=== PATIENT | male | born 1940 | race Caucasian/White ===

== ENCOUNTER 2020-12-17 15:36 | Observation (INO) | payer MEDICARE, OTHER ==
--- NOTE | 2020-12-17 19:23 | EDM.PDOC ---
ED HPI GENERAL MEDICAL PROBLEM - General Chief Complaint: Lower Extremity Injury/Pain Stated Complaint: FALL Time Seen by Provider: 12/17/20 16:00 Source of Information: Reports: Patient, EMS Notes Reviewed, Family History Limitations: Reports: Other (pt with limited understanding of his medical hx, son gave some of his hx, not seen in ED here previoiusly) - History of Present Illness INITIAL COMMENTS - FREE TEXT/NARRATIVE: c/o L hip pain pt [place] his in the jail, feeling well, he turned and thinks his new tennis shoe stuck on the floor and did not pivot, he fell on his left side, unable to wt bear, minimal pain at rest, he indicates pain over his L greater trochanter 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 PMH: no prior records here in [place], limited hx available from pt, past hx includes current smoker, penile cancer PSH: includes b/l inguinal lymphadenectomy meds: from his phone he takes tamsulosin 0.4 mg qhs, Erleada 60 mg 4 tabs/d, Left Hip Pain Score (Numeric/FACES): 2 - Related Data Allergies Allergy/AdvReac Type Severity Reaction Status Date / Time No Known Allergies Allergy Verified 12/17/20 15:52 Home Meds: Home Meds Acetaminophen/Diphenhydramine [Tylenol Pm Ex-Strength Caplet] 2 tab PO BEDTIME 12/17/20 [History] Calcium Carbonate/Vitamin D3 [Calcium 600 mg-D3 20 Mcg Tab] 1 tab PO DAILY 12/17/20 [History] Erleada 240 mg PO DAILY 12/17/20 [History] Metoprolol Tartrate 12.5 mg PO BID 12/17/20 [History] Multivit-Min/FA/Lycopen/Lutein [Centrum Silver Tablet] 1 tab PO DAILY 12/17/20 [History] Simvastatin 20 mg PO BEDTIME 12/17/20 [History] Tamsulosin HCl 0.8 mg PO BEDTIME 12/17/20 [History] metFORMIN [Glucophage] 500 mg PO BID 12/17/20 [History] Review of Systems - Review of Systems Review Of Systems: See Below Constitutional: Reports: No Symptoms Eyes: Reports: No Symptoms Ears: Reports: No Symptoms Nose: Reports: No Symptoms Mouth/Throat: Reports: No Symptoms Respiratory: Reports: No Symptoms Cardiovascular: Reports: No Symptoms GI/Abdominal: Reports: No Symptoms Genitourinary: Reports: No Symptoms Musculoskeletal: Reports: Other (left hip pain) Skin: Reports: No Symptoms Neurological: Reports: No Symptoms Psychiatric: Reports: No Symptoms ED EXAM, GENERAL - Physical Exam Exam: See Below Exam Limited By: No Limitations General Appearance: Alert, WD/WN, No Apparent Distress, Other (pleasant, pivoted on his good RLE to transfer to and from bed and w/c without difficulty) Ears: Hearing Loss Nose: Normal Inspection Throat/Mouth: Normal Voice, No Airway Compromise Head: Atraumatic, Normocephalic Neck: Normal Inspection, Supple, Non-Tender, Full Range of Motion. No: Lymphadenopathy (R), Lymphadenopathy (L) Respiratory/Chest: No Respiratory Distress, Lungs Clear, Chest Non-Tender Cardiovascular: Regular Rate, Rhythm, No Edema, No Murmur, Other (2/6 EMBER at LSB) GI/Abdominal: Soft, Non-Tender, No Distention Back Exam: Normal Inspection, Full Range of Motion. No: CVA Tenderness (R), CVA Tenderness (L) Extremities: Normal Inspection, Normal Range of Motion, Non-Tender, Other (nontender in left inguinal area and over left greater trochanger, no swell, no shortening on arrival, however there was 4 cm of shortening later, 1+ left DPpulse) Neurological: Alert, Oriented, CN II-XII Intact, Normal Cognition, No Motor/Sensory Deficits Psychiatric: Normal Affect, Normal Mood Skin Exam: Warm, Dry, Intact, Normal Color, No Rash Lymphatic: No Adenopathy Course - Vital Signs Last Recorded V/S: Last Vital Signs Temp 37.2 C 12/17/20 15:36 Pulse 81 12/17/20 18:22 Resp 18 12/17/20 18:22 BP 145/85 H 12/17/20 18:22 Pulse Ox 98 12/17/20 18:22 - Orders/Labs/Meds Orders: Active Orders 24 hr Category Date Time Status Hip Min 2V or 3V w Pelvis Lt [CR] Stat Exams 12/17/20 16:25 Taken EKG 12 Lead [EK] Routine Ther 12/17/20 18:03 Ordered Medication Orders Metformin HCl (Metformin 500 Mg Tab) 500 mg PO BID JUSTUS Metoprolol Tartrate (Metoprolol Tartrate 25 Mg Tab) 12.5 mg PO BID JUSTUS Morphine Sulfate (Morphine 2 Mg/Ml Syringe) 2 mg IVPUSH Q2H PRN PRN Reason: Pain (severe 7-10) Ondansetron HCl (Ondansetron 4 Mg/2 Ml Sdv) 4 mg IVPUSH Q4H PRN PRN Reason: Nausea Simvastatin (Simvastatin 20 Mg Tab) 20 mg PO BEDTIME JUSTUS Tamsulosin HCl (Tamsulosin 0.4 Mg Cap.Er) 0.8 mg PO BEDTIME JUSTUS Zolpidem Tartrate (Zolpidem 5 Mg Tab) 5 mg PO BEDTIME PRN PRN Reason: Sleep Labs: Laboratory Tests 12/17/20 12/17/20 12/17/20 Range/Units 18:10 18:13 18:13 WBC 10.5 H (3.2-10.1) x10-3/uL RBC 3.65 L (3.90-5.90) x10(6)uL Hgb 10.7 L (12.9-17.7) g/dL Hct 33.1 L (38.3-50.1) % MCV 90.7 (80.8-98.7) fL MCH 29.4 (27.0-33.3) pg MCHC 32.4 (28.7-35.3) g/dL RDW 15.0 (12.4-15.0) % Plt Count 385 (117-477) x10(3)uL MPV 7.0 (6.7-11.0) fL Add Manual Diff Yes Neutrophils % (Manual) 96 H (46-82) % Lymphocytes % (Manual) 2 L (13-37) % Monocytes % (Manual) 2 L (4-12) % Sodium 137 (135-145) mmol/L Potassium 4.4 (3.5-5.3) mmol/L Chloride 100 (100-110) mmol/L Carbon Dioxide 25 (21-32) mmol/L BUN 22 H (7-18) mg/dL Creatinine 1.4 H (0.70-1.30) mg/dL Est Cr Clr Drug Dosing 47.73 mL/min Estimated GFR (MDRD) 49 L (>60) BUN/Creatinine Ratio 15.7 (9-20) Glucose 144 H (80-116) mg/dL Calcium 9.2 (8.6-10.2) mg/dL Total Bilirubin 0.4 (0.1-1.3) mg/dL AST 10 (5-25) IU/L ALT 15 (12-36) U/L Alkaline Phosphatase 84 (56-112) IU/L Troponin I (4.0-60.3) pg/mL C-Reactive Protein (0.5-0.9) mg/dL Total Protein 7.5 (6.0-8.0) g/dL Albumin 2.9 L (3.2-4.6) g/dL Globulin 4.6 g/dL Albumin/Globulin Ratio 0.6 Urine Color Yellow (YELLOW) Urine Appearance Clear (CLEAR) Urine pH 5.0 (5.0-6.5) Ur Specific [place] 1.025 (1.010-1.025) Urine Protein Trace (NEGATIVE) mg/dL Urine Glucose (UA) Normal (NORMAL) mg/dL Urine Ketones 15 H (NEGATIVE) mg/dL Urine Occult Blood Negative (NEGATIVE) Urine Nitrite Negative (NEGATIVE) Urine Bilirubin Small H (NEGATIVE) Urine Urobilinogen 1 H (NEGATIVE) mg/dL Ur Leukocyte Esterase Negative (NEGATIVE) Urine RBC 0-5 (0-5) Urine WBC 0-5 (0-5) Ur Squamous Epith Cells Few H (NS,R,O) Urine Bacteria Few H (NS) 12/17/20 Range/Units 18:13 WBC (3.2-10.1) x10-3/uL RBC (3.90-5.90) x10(6)uL Hgb (12.9-17.7) g/dL Hct (38.3-50.1) % MCV (80.8-98.7) fL MCH (27.0-33.3) pg MCHC (28.7-35.3) g/dL RDW (12.4-15.0) % Plt Count (117-477) x10(3)uL MPV (6.7-11.0) fL Add Manual Diff Neutrophils % (Manual) (46-82) % Lymphocytes % (Manual) (13-37) % Monocytes % (Manual) (4-12) % Sodium (135-145) mmol/L Potassium (3.5-5.3) mmol/L Chloride (100-110) mmol/L Carbon Dioxide (21-32) mmol/L BUN (7-18) mg/dL Creatinine (0.70-1.30) mg/dL Est Cr Clr Drug Dosing mL/min Estimated GFR (MDRD) (>60) BUN/Creatinine Ratio (9-20) Glucose (80-116) mg/dL Calcium (8.6-10.2) mg/dL Total Bilirubin (0.1-1.3) mg/dL AST (5-25) IU/L ALT (12-36) U/L Alkaline Phosphatase (56-112) IU/L Troponin I 14.5 (4.0-60.3) pg/mL C-Reactive Protein 11.3 H* (0.5-0.9) mg/dL Total Protein (6.0-8.0) g/dL Albumin (3.2-4.6) g/dL Globulin g/dL Albumin/Globulin Ratio Urine Color (YELLOW) Urine Appearance (CLEAR) Urine pH (5.0-6.5) Ur Specific [place] (1.010-1.025) Urine Protein (NEGATIVE) mg/dL Urine Glucose (UA) (NORMAL) mg/dL Urine Ketones (NEGATIVE) mg/dL Urine Occult Blood (NEGATIVE) Urine Nitrite (NEGATIVE) Urine Bilirubin (NEGATIVE) Urine Urobilinogen (NEGATIVE) mg/dL Ur Leukocyte Esterase (NEGATIVE) Urine RBC (0-5) Urine WBC (0-5) Ur Squamous Epith Cells (NS,R,O) Urine Bacteria (NS) Meds: Medications Generic Name Dose Route Start Last Admin Trade Name Freq PRN Reason Stop Dose Admin Metformin HCl 500 mg 12/18/20 09:00 Metformin 500 Mg Tab PO BID [facility] Metoprolol Tartrate 12.5 mg 12/18/20 09:00 Metoprolol Tartrate 25 Mg Tab PO BID [facility] Morphine Sulfate 2 mg 12/17/20 21:23 Morphine 2 Mg/Ml Syringe IVPUSH Q2H PRN Pain (severe 7-10) Ondansetron HCl 4 mg 12/17/20 21:31 Ondansetron 4 Mg/2 Ml Sdv IVPUSH Q4H PRN Nausea Simvastatin 20 mg 10/18/21 21:00 Simvastatin 20 Mg Tab PO BEDTIME JUSTUS Tamsulosin HCl 0.8 mg 12/18/20 21:00 Tamsulosin 0.4 Mg Cap.Er PO BEDTIME JUSTUS Zolpidem Tartrate 5 mg 12/17/20 21:23 Zolpidem 5 Mg Tab PO BEDTIME PRN Sleep - Re-Assessments/Exams Free Text/Narrative Re-Assessment/Exam: 12/17/20 21:59 pt is a cancer pt at [facility], Tina from nurse triage said at 17:40 that [facility] was only accepting strokes and STEMIs and she could not put pt on a wait list. I requested a call back from gis database administrator promotions producer. Laura, on-call gis database administrator, called at 17:51 and requested pt to be boarded til morning and that our hospitalist should call at the [facility] hospitalist to arrange the transfer. Laura could not put pt on a wait list but said that her "call sheet" would be placed aside in anticipation of a call back in the morning. pt also placed on wait list at [facility] (who maintained a wait list) Dimitri Fofana and [facility] not called just yet as transfer to 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 alth radiologist did not identify them on plain films marked inc'd CRP 11 and mild increase of WBC 10 are likely d/t CA and pain respectively, adrianne did have WBC 11 recently in [place] (which son found on MyChart on his phone) urine is concentrated without evidence of infection, CxR 1 view did not show infection alb is low today, had been over 3 recently in [place] doubt pathologic fracture altho patient at increased risk for surgery and recover d/t his co-morbidities Departure - Departure Time of Disposition: 21:08 Disposition: Refer to Observation Condition: Good Clinical Impression: Closed subcapital fracture of left femur, Elevated C-reactive protein (CRP), Hypoalbuminemia, Mild dehydration, Current smoker, Normocytic normochromic anemia, Chronic renal insufficiency - Discharge Information *PRESCRIPTION DRUG MONITORING PROGRAM REVIEWED*: Not Applicable *COPY OF PRESCRIPTION DRUG MONITORING REPORT IN PATIENT MANUEL: Not Applicable Sepsis Event Note (ED) - Evaluation Sepsis Screening Result: No Definite Risk - Focused Exam Vital Signs: Vital Signs Temp Pulse Resp BP Pulse Ox 12/17/20 18:22 81 18 145/85 H 98 12/17/20 15:36 37.2 C 81 17 129/99 H 97 - My Orders Last 24 Hours: My Active Orders 12/17/20 16:25 Hip Min 2V or 3V w Pelvis Lt [CR] Stat 12/17/20 18:03 EKG 12 Lead [EK] Routine - Assessment/Plan Last 24 Hours: My Active Orders 12/17/20 16:25 Hip Min 2V or 3V w Pelvis Lt [CR] Stat 12/17/20 18:03 EKG 12 Lead [EK] Routine
[2020-12-17] MEDS ORDERED: Tamsulosin 0.4 MG Cap.ER**OWN MED PO SCH ×2 (21:00→22:30)
[2020-12-17] MEDS ORDERED: Zolpidem 5 MG Tab PO PRN (21:23)
[2020-12-17] MEDS ORDERED: Morphine 2 MG/ML SYRINGE IVPUSH PRN (21:23)
[2020-12-17] MEDS ORDERED: Ondansetron 4 MG/2 ML SDV IVPUSH PRN (21:31)
[2020-12-17] MEDS ORDERED: Simvastatin 20 MG Tab**OWN MED PO SCH (22:15)
[2020-12-17] MEDS: Metoprolol Tartrate 25 MG Tab**OWN MED PO SCH (22:32)
[2020-12-17] MEDS: metFORMIN 500 MG Tab**OWN MED PO SCH (22:33)
[2020-12-18] MEDS ORDERED: Acetaminophen/Diphenhydramine 500-25 MG Tab PO PRN ×2 (01:00→09:11)
[2020-12-18] MEDS ORDERED: Sodium Chloride 0.9% 1,000 ML IV SCH (09:00)
[2020-12-18] MEDS ORDERED: Acetaminophen 500 MG Tab PO SCH (09:15)
[2020-12-18] MEDS: metFORMIN 500 MG Tab**OWN MED PO SCH (09:35)
[2020-12-18] MEDS: Metoprolol Tartrate 25 MG Tab**OWN MED PO SCH (09:59)
[2020-12-18] MEDS ORDERED: ERLEADA 60 MG PO SCH (10:00)
--- NOTE | 2020-12-18 11:26 | PCM.HP.2 ---
H&P History of Present Illness - General Date of Service: 12/18/20 Admit Problem/Dx: Left subcapital femur fracture, fall Source of Information: Patient, Provider History Limitations: Reports: No Limitations - History of Present Illness Initial Comments - Free Text/Narative: Nicholas was visiting his at [facility] yesterday, helped her into chair and turned around and his shoe stuck to the floor and he fell on his left side. He got himself up but when he tried to bear weight on his left leg he fell back down to the floor. Pain tolerable if he doesn't move. He denies any fever, chills, shortness of breath, chest pain, abdominal pain, nausea, vomiting, diarrhea, dysuria, frequency or hematuria. 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 Also history of Prostate cancer, & Diabetes, on Metformin. No availabl e beds yesterday so was admitted to observation for pain control and try to transfer today. He's a full code. In ER, CXR negative. Covid negative. WBC was 11, CRP 11.3, Cr 1.4, BUN 20. UA negative. Hip x-ray showed left subcapital femur fracture, no mention of mets to bone. Left Hip Pain Score (Numeric/FACES): 3 - Related Data Allergies/Adverse Reactions: Allergies Allergy/AdvReac Type Severity Reaction Status Date / Time No Known Allergies Allergy Verified 12/17/20 15:52 Home Medications: Home Meds Acetaminophen/Diphenhydramine [Tylenol Pm Ex-Strength Caplet] 2 tab PO BEDTIME 12/17/20 [History] Calcium Carbonate/Vitamin D3 [Calcium 600 mg-D3 20 Mcg Tab] 1 tab PO DAILY 12/17/20 [History] Erleada 240 mg PO DAILY 12/17/20 [History] Metoprolol Tartrate 12.5 mg PO BID 12/17/20 [History] Multivit-Min/FA/Lycopen/Lutein [Centrum Silver Tablet] 1 tab PO DAILY 12/17/20 [History] Simvastatin 20 mg PO BEDTIME 12/17/20 [History] Tamsulosin HCl 0.4 mg PO BEDTIME 12/17/20 [History] metFORMIN [Glucophage] 500 mg PO BID 12/17/20 [History] Acetaminophen [Tylenol Extra Strength] 500 mg PO Q6H tablet 12/18/20 [Rx] Acetaminophen/Diphenhydramine [Mapap PM] 1 tab PO BEDTIME PRN tablet 12/18/20 [Rx] Morphine 2 mg IVPUSH Q2H PRN syringe 12/18/20 [Rx] Ondansetron [Zofran] 4 mg IVPUSH Q4H PRN vial 12/18/20 [Rx] Past Medical History HEENT History: 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 Lymphedema, and lymphs removed from groin area Psychiatric History: Reports: None Endocrine/Metabolic History: Reports: Diabetes, Type II Oncologic (Cancer) History: Reports: Prostate, Other (See Below) Other Oncologic History: Groin lymphnode removal due to CA penile cancer - Infectious Disease History Infectious Disease History: Reports: Measles - Past Surgical History HEENT Surgical History: Reports: Other (See Below) Other HEENT Surgeries/Procedures: ear surgery - hammer replaced with metal hammer Male Surgical History: Reports: Circumcision, Prostate Biopsy Other Oncologic Surgeries/Procedures: Bilateral Groin lymphnode removal due to CA Social & Family History - Family History Family Medical History: No Pertinent Family History - Tobacco Use Tobacco Use Status *Q: Current Every Day Tobacco User Years of Tobacco use: 60 Packs/Tins Daily: 1 - Caffeine Use Caffeine Use: Reports: Coffee - Recreational Drug Use Recreational Drug Use: No H&P Review of Systems - Review of Systems: Review Of Systems: Comprehensive ROS is negative, except as noted in HPI. Exam - Exam Exam: See Below - Vital Signs Vital Signs: Last Vital Signs Temp 98.5 F 12/18/20 09:38 Pulse 76 12/18/20 09:59 Resp 18 12/18/20 09:38 BP 126/63 12/18/20 09:59 Pulse Ox 95 12/18/20 09:38 Weight: 178 lb 3.2 oz - Exam General: Alert, Oriented, Cooperative HEENT: PERRLA, EOMI, Hearing Intact, Mucosa Moist & Register Neck: Trachea Midline Lungs: Clear to Auscultation, Normal Respiratory Effort Cardiovascular: Regular Rate, Regular Rhythm GI/Abdominal Exam: Normal Bowel Sounds, Soft, Non-Tender, No Distention (Male) Exam: Deferred Rectal (Males) Exam: Deferred Extremities: No Pedal Edema, Normal Capillary Refill, Leg Pain, Limited Range of Motion (left hip in external rotation, leg length shortened by 4 cm, position of comfort) Peripheral Pulses: 2+: Radial (L), Radial (R), Posterior Tibial (L), Posterior Tibial (R), Dorsalis Pedis (L), Dorsalis Pedis (R) Skin: Warm, Dry, Intact Neurological: Cranial Nerves Intact, Normal Speech, Normal Tone - Patient Data Lab Results Last 24 hrs: Laboratory Results - last 24 hr 12/17/20 12/17/20 12/17/20 Range/Units 18:10 18:13 18:13 WBC 10.5 H (3.2-10.1) x10-3/uL RBC 3.65 L (3.90-5.90) x10(6)uL Hgb 10.7 L (12.9-17.7) g/dL Hct 33.1 L (38.3-50.1) % MCV 90.7 (80.8-98.7) fL MCH 29.4 (27.0-33.3) pg MCHC 32.4 (28.7-35.3) g/dL RDW 15.0 (12.4-15.0) % Plt Count 385 (117-477) x10(3)uL MPV 7.0 (6.7-11.0) fL Add Manual Diff Yes Neutrophils % (Manual) 96 H (46-82) % Lymphocytes % (Manual) 2 L (13-37) % Monocytes % (Manual) 2 L (4-12) % Sodium 137 (135-145) mmol/L Potassium 4.4 (3.5-5.3) mmol/L Chloride 100 (100-110) mmol/L Carbon Dioxide 25 (21-32) mmol/L BUN 22 H (7-18) mg/dL Creatinine 1.4 H (0.70-1.30) mg/dL Est Cr Clr Drug Dosing 47.73 mL/min Estimated GFR (MDRD) 49 L (>60) BUN/Creatinine Ratio 15.7 (9-20) Glucose 144 H (80-116) mg/dL POC Glucose (80-116) mg/dL Calcium 9.2 (8.6-10.2) mg/dL Total Bilirubin 0.4 (0.1-1.3) mg/dL AST 10 (5-25) IU/L ALT 15 (12-36) U/L Alkaline Phosphatase 84 (56-112) IU/L Troponin I (4.0-60.3) pg/mL C-Reactive Protein (0.5-0.9) mg/dL Total Protein 7.5 (6.0-8.0) g/dL Albumin 2.9 L (3.2-4.6) g/dL Globulin 4.6 g/dL Albumin/Globulin Ratio 0.6 Urine Color Yellow (YELLOW) Urine Appearance Clear (CLEAR) Urine pH 5.0 (5.0-6.5) Ur Specific Cameron 1.025 (1.010-1.025) Urine Protein Trace (NEGATIVE) mg/dL Urine Glucose (UA) Normal (NORMAL) mg/dL Urine Ketones 15 H (NEGATIVE) mg/dL Urine Occult Blood Negative (NEGATIVE) Urine Nitrite Negative (NEGATIVE) Urine Bilirubin Small H (NEGATIVE) Urine Urobilinogen 1 H (NEGATIVE) mg/dL Ur Leukocyte Esterase Negative (NEGATIVE) Urine RBC 0-5 (0-5) Urine WBC 0-5 (0-5) Ur Squamous Epith Cells Few H (NS,R,O) Urine Bacteria Few H (NS) SARS-CoV-2 RNA (ALAN) (NEGATIVE) 12/17/20 12/17/20 12/18/20 Range/Units 18:13 18:30 06:20 WBC (3.2-10.1) x10-3/uL RBC (3.90-5.90) x10(6)uL Hgb (12.9-17.7) g/dL Hct (38.3-50.1) % MCV (80.8-98.7) fL MCH (27.0-33.3) pg MCHC (28.7-35.3) g/dL RDW (12.4-15.0) % Plt Count (117-477) x10(3)uL MPV (6.7-11.0) fL Add Manual Diff Neutrophils % (Manual) (46-82) % Lymphocytes % (Manual) (13-37) % Monocytes % (Manual) (4-12) % Sodium 137 (135-145) mmol/L Potassium 4.1 (3.5-5.3) mmol/L Chloride 103 (100-110) mmol/L Carbon Dioxide 24 (21-32) mmol/L BUN 20 H (7-18) mg/dL Creatinine 1.3 (0.70-1.30) mg/dL Est Cr Clr Drug Dosing 51.40 mL/min Estimated GFR (MDRD) 53 L (>60) BUN/Creatinine Ratio 15.4 (9-20) Glucose 129 H (80-116) mg/dL POC Glucose (80-116) mg/dL Calcium 8.6 (8.6-10.2) mg/dL Total Bilirubin (0.1-1.3) mg/dL AST (5-25) IU/L ALT (12-36) U/L Alkaline Phosphatase (56-112) IU/L Troponin I 14.5 (4.0-60.3) pg/mL C-Reactive Protein 11.3 H* (0.5-0.9) mg/dL Total Protein (6.0-8.0) g/dL Albumin (3.2-4.6) g/dL Globulin g/dL Albumin/Globulin Ratio Urine Color (YELLOW) Urine Appearance (CLEAR) Urine pH (5.0-6.5) Ur Specific Cameron (1.010-1.025) Urine Protein (NEGATIVE) mg/dL Urine Glucose (UA) (NORMAL) mg/dL Urine Ketones (NEGATIVE) mg/dL Urine Occult Blood (NEGATIVE) Urine Nitrite (NEGATIVE) Urine Bilirubin (NEGATIVE) Urine Urobilinogen (NEGATIVE) mg/dL Ur Leukocyte Esterase (NEGATIVE) Urine RBC (0-5) Urine WBC (0-5) Ur Squamous Epith Cells (NS,R,O) Urine Bacteria (NS) SARS-CoV-2 RNA (ALAN) Negative (NEGATIVE) 12/18/20 12/18/20 12/18/20 Range/Units 06:25 06:26 11:10 WBC 7.6 (3.2-10.1) x10-3/uL RBC 3.23 L (3.90-5.90) x10(6)uL Hgb 9.7 L (12.9-17.7) g/dL Hct 29.4 L (38.3-50.1) % MCV 91.0 (80.8-98.7) fL MCH 30.0 (27.0-33.3) pg MCHC 33.0 (28.7-35.3) g/dL RDW 15.1 H (12.4-15.0) % Plt Count 297 (117-477) x10(3)uL MPV 7.2 (6.7-11.0) fL Add Manual Diff Yes Neutrophils % (Manual) 86 H (46-82) % Lymphocytes % (Manual) 9 L (13-37) % Monocytes % (Manual) 5 (4-12) % Sodium (135-145) mmol/L Potassium (3.5-5.3) mmol/L Chloride (100-110) mmol/L Carbon Dioxide (21-32) mmol/L BUN (7-18) mg/dL Creatinine (0.70-1.30) mg/dL Est Cr Clr Drug Dosing mL/min Estimated GFR (MDRD) (>60) BUN/Creatinine Ratio (9-20) Glucose (80-116) mg/dL POC Glucose 120 H 125 H (80-116) mg/dL Calcium (8.6-10.2) mg/dL Total Bilirubin (0.1-1.3) mg/dL AST (5-25) IU/L ALT (12-36) U/L Alkaline Phosphatase (56-112) IU/L Troponin I (4.0-60.3) pg/mL C-Reactive Protein (0.5-0.9) mg/dL Total Protein (6.0-8.0) g/dL Albumin (3.2-4.6) g/dL Globulin g/dL Albumin/Globulin Ratio Urine Color (YELLOW) Urine Appearance (CLEAR) Urine pH (5.0-6.5) Ur Specific Cameron (1.010-1.025) Urine Protein (NEGATIVE) mg/dL Urine Glucose (UA) (NORMAL) mg/dL Urine Ketones (NEGATIVE) mg/dL Urine Occult Blood (NEGATIVE) Urine Nitrite (NEGATIVE) Urine Bilirubin (NEGATIVE) Urine Urobilinogen (NEGATIVE) mg/dL Ur Leukocyte Esterase (NEGATIVE) Urine RBC (0-5) Urine WBC (0-5) Ur Squamous Epith Cells (NS,R,O) Urine Bacteria (NS) SARS-CoV-2 RNA (ALAN) (NEGATIVE) Result Diagrams: 12/18/20 06:25 12/18/20 06:20 Sepsis Event Note - Evaluation Sepsis Screening Result: No Definite Risk - Focused Exam Vital Signs: Vital Signs Temp Pulse Pulse Pulse Resp BP BP 12/18/20 09:59 76 126/63 12/18/20 09:38 98.5 F 76 18 126/63 12/18/20 05:00 97.2 F 67 16 131/62 Pulse Ox 12/18/20 09:59 12/18/20 09:38 95 12/18/20 05:00 97 *Q Meaningful Use (ADM) - VTE *Q VTE Mechanical Contraindications *Q: At Risk for Falls VTE Pharmacological Contraindications *Q: Risk of Bleeding - VTE Risk Assess *Q Each Risk Factor Represents 1 Point: None Total Score 1 Point Risk Factors: 0 Each Risk Factor Represents 2 Points: Malignancy (present or previous) Total Score 2 Point Risk Factors: 2 Each Risk Factor Represents 3 Points: Age 75 Years or Greater Total Score 3 Point Risk Factors: 3 Each Risk Factor Represents 5 Points: Hip, Pelvis or Leg Fracture, Less than 1 month Total Score 5 Point Risk Factors: 5 Venous Thromboembolism Risk Factor Score *Q: 10 - Problem List (1) Closed subcapital fracture of left femur SNOMED Code(s): 210818546, 96346940115767964 ICD Code: S72.012A - UNSP INTRACAPSULAR FRACTURE OF LEFT FEMUR, INIT FOR CLOS FX Status: Acute Current Visit: Yes (2) Elevated C-reactive protein (CRP) SNOMED Code(s): 019826191082670 ICD Code: R79.82 - ELEVATED C-REACTIVE PROTEIN (CRP) Status: Acute Current Visit: Yes (3) Mild dehydration SNOMED Code(s): 0734869047838 ICD Code: E86.0 - DEHYDRATION Status: Acute Current Visit: Yes (4) Chronic renal insufficiency SNOMED Code(s): 941638629 ICD Code: N18.9 - CHRONIC KIDNEY DISEASE, UNSPECIFIED Status: Chronic Current Visit: Yes (5) Normocytic normochromic anemia SNOMED Code(s): 66257543 ICD Code: D64.9 - ANEMIA, UNSPECIFIED Status: Chronic Current Visit: Yes (6) History of penile cancer SNOMED Code(s): 348393729 ICD Code: Z85.49 - PERSONAL HISTORY OF MALIG NEOPLASM OF MALE GENITAL ORGANS Status: Chronic Current Visit: Yes (7) History of prostate cancer SNOMED Code(s): 086242091 ICD Code: Z85.46 - PERSONAL HISTORY OF MALIGNANT NEOPLASM OF PROSTATE Status: Chronic Current Visit: Yes (8) Current smoker SNOMED Code(s): 08285656 ICD Code: F17.200 - NICOTINE DEPENDENCE, UNSPECIFIED, UNCOMPLICATED Status: Chronic Current Visit: Yes Problem List Initiated/Reviewed/Updated: Yes Orders Last 24hrs: Active Orders 24 hr Category Date Time Status Admission Status [Patient Status] [ADT] Routine ADT 12/17/20 18:32 Active Blood Glucose Check, Bedside [RC] 07,11,, Care 12/17/20 21:23 Active Oxygen Therapy [RC] .PRN Care 12/17/20 21:23 Active Ready for Discharge [RC] PER UNIT ROUTINE Care 12/18/20 11:18 Active VTE/DVT Education [RC] DAILY Care 12/17/20 21:23 Active Vital Signs [RC] Q4H Care 12/17/20 21:23 Active Nothing per Oral After Midnight Diet [DIET] Diet 12/17/20 Dinner Active Chest 1V Frontal [CR] Stat Exams 12/17/20 19:11 Taken Hip Min 2V or 3V w Pelvis Lt [CR] Stat Exams 12/17/20 16:25 Taken Acetaminophen [Tylenol Extra Strength] Med 12/18/20 09:15 Active 500 mg PO Q6H Acetaminophen/Diphenhydramine [Tylenol PM Extra Med 12/18/20 09:11 Active Strength] 1 tab PO BEDTIME PRN Metoprolol Tartrate [Lopressor] Med 12/17/20 22:15 Active 12.5 mg PO BID Morphine Med 12/17/20 21:23 Active 2 mg IVPUSH Q2H PRN Non-Formulary Medication [NF Drug] Med 12/18/20 10:00 Active 0 each PO DAILY Ondansetron [Zofran] Med 12/17/20 21:31 Active 4 mg IVPUSH Q4H PRN Simvastatin [Zocor] Med 12/17/20 22:15 Active 20 mg PO BEDTIME Sodium Chloride 0.9% [Normal Saline] 1,000 ml Med 12/18/20 09:00 Active IV ASDIRECTED Tamsulosin [Flomax] Med 12/17/20 21:00 Active 0.4 mg PO BEDTIME Zolpidem [Ambien] Med 12/17/20 21:23 Active 5 mg PO BEDTIME PRN metFORMIN [Glucophage] Med 12/18/20 08:00 Hold 500 mg PO BIDMEALS Resuscitation Status Routine Resus Stat 12/17/20 21:23 Ordered EKG 12 Lead [EK] Routine Ther 12/17/20 18:03 Ordered Medication Orders Acetaminophen (Acetaminophen 500 Mg Tab) 500 mg PO Q6H [facility] Last Admin: 12/18/20 09:59 Dose: 500 mg Documented by: CASANDRA Acetaminophen/Diphenhydramine HCl (Acetaminophen/Diphenhydramine 500-25 Mg Tab) 1 tab PO BEDTIME PRN PRN Reason: Sleep Sodium Chloride (Normal Saline) 1,000 mls @ 75 mls/hr IV ASDIRECTED [facility] Last Admin: 12/18/20 09:45 Dose: 75 mls/hr Documented by: NYA Metformin HCl (Metformin 500 Mg TabOwn Med) 500 mg PO BIDMEALS [facility] Last Admin: 12/18/20 09:35 Dose: Not Given Documented by: Admin: 12/17/20 22:33 Dose: 500 mg Documented by: KB Metoprolol Tartrate (Metoprolol Tartrate 25 Mg TabOwn Med) 12.5 mg PO BID [facility] Last Admin: 12/18/20 09:59 Dose: 12.5 mg Documented by: Admin: 12/17/20 22:32 Dose: 12.5 mg Documented by: KB Morphine Sulfate (Morphine 2 Mg/Ml Syringe) 2 mg IVPUSH Q2H PRN PRN Reason: Pain (severe 7-10) Erleada 60mg Tablet (*Ptom) 0 each PO DAILY [facility] Last Admin: 12/18/20 10:02 Dose: 4 each Documented by: CASANDRA Ondansetron HCl (Ondansetron 4 Mg/2 Ml Sdv) 4 mg IVPUSH Q4H PRN PRN Reason: Nausea Simvastatin (Simvastatin 20 Mg TabOwn Med) 20 mg PO BEDTIME [facility] Last Admin: 12/17/20 22:32 Dose: 20 mg Documented by: KB Tamsulosin HCl (Tamsulosin 0.4 Mg Cap.ErOwn Med) 0.4 mg PO BEDTIME [facility] Last Admin: 12/17/20 22:33 Dose: 0.4 mg Documented by: KB Zolpidem Tartrate (Zolpidem 5 Mg Tab) 5 mg PO BEDTIME PRN PRN Reason: Sleep Assessment/Plan Comment:: 1. Admitted for observation for left femur fracture. 2. Femur fracture: Called [facility], Dr Sunshine hospitalist accepted patient in transfer, bed available sometime today. Keep NPO except sips of water & ice chips. Acetaminophen 500 mg q6h, Morphine 2 mg IV q2h as needed. Hold Metformin. NS at 75 ml/hr. 3. History of penile/prostate cancer: Erleada 240 mg daily(pt's supply). 4. Diet: NPO except sips of water & ice chips. 5. Activity: bedrest with urinal. 6. CODE STATUS: FULL. 7. THIS NOTE ALSO SERVES DISCHARGE SUMMARY: Transferred to [facility] by ground ambulance for orthopedic repair of left femur fracture, Covid negative. CXR & UA negative. WBC today 7.6, Hgb 9.7. Cr 1.3. - Mortality Measure Prognosis:: Good
== END 2020-12-18 12:45 ==
LOC: FB.ED 15:36 → FB.MS 18:27
PROVIDERS: ADMIT Emergency Medicine; ATTEND Family Medicine
DX: S72.012A Unspecified intracapsular fracture of left femur, initial encounter for closed fracture (principal); E78.00 Pure hypercholesterolemia, unspecified; F17.210 Nicotine dependence, cigarettes, uncomplicated; E86.0 Dehydration; I12.9 Hypertensive chronic kidney disease with stage 1 through stage 4 chronic kidney disease, or unspecified chronic kidney disease; E11.22 Type 2 diabetes mellitus with diabetic chronic kidney disease; N18.9 Chronic kidney disease, unspecified; Z20.822 Contact with and (suspected) exposure to COVID-19; Z85.49 Personal history of malignant neoplasm of other male genital organs; Z79.899 Other long term (current) drug therapy; Z79.84 Long term (current) use of oral hypoglycemic drugs; Z98.890 Other specified postprocedural states
CPT/HCPCS: 36415; 71045; 73502-LT; 80048; 80053; 81001; 82947; 84484; 85025; 86140; 93005; 99285-25; A9270-GY; G0378; J7030; U0002

== ENCOUNTER 2021-03-10 23:37 | Emergency (ER) | payer MEDICARE, OTHER ==
[2021-03-10] MEDS ORDERED: Amoxicillin/Clavulanate K 875-125 MG Tab PO ONE (23:38)
[2021-03-11 00:48] LABS: CORONAVIRUS COVID-19 NAA NEGATIVE (NEGATIVE)
--- NOTE | 2021-03-11 00:56 | EDM.PDOC ---
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 Patient states that the fall was secondary to weakness. He complains of no chest pain, fever, chills, flulike symptoms, change in bowel or bladder habits and has no complaints of pain whatsoever at this time. He states that he has been able to get up and walk on his own since the fall. He was informed by EMS that he had a temperature of 103 F but on admission to the emergency department he had a subgrade temperature at under 100. He did not have Tylenol or ibuprofen/NSAIDs. - Related Data Allergies Allergy/AdvReac Type Severity Reaction Status Date / Time No Known Allergies Allergy Verified 12/17/20 15:52 Home Meds: Home Meds Acetaminophen/Diphenhydramine [Tylenol Pm Ex-Strength Caplet] 2 tab PO BEDTIME 12/17/20 [History] Calcium Carbonate/Vitamin D3 [Calcium 600 mg-D3 20 Mcg Tab] 1 tab PO DAILY 12/17/20 [History] Erleada 240 mg PO DAILY 12/17/20 [History] Metoprolol Tartrate 12.5 mg PO BID 12/17/20 [History] Multivit-Min/FA/Lycopen/Lutein [Centrum Silver Tablet] 1 tab PO DAILY 12/17/20 [History] Simvastatin 20 mg PO BEDTIME 12/17/20 [History] Tamsulosin HCl 0.4 mg PO BEDTIME 12/17/20 [History] metFORMIN [Glucophage] 500 mg PO BID 12/17/20 [History] Acetaminophen [Tylenol Extra Strength] 500 mg PO Q6H tablet 12/18/20 [Rx] Acetaminophen/Diphenhydramine [Mapap PM] 1 tab PO BEDTIME PRN tablet 12/18/20 [Rx] Morphine 2 mg IVPUSH Q2H PRN syringe 12/18/20 [Rx] Ondansetron [Zofran] 4 mg IVPUSH Q4H PRN vial 12/18/20 [Rx] Past Medical History HEENT History: Reports: Hard of Hearing Other HEENT History: [place] uses hearing aid clara ears Cardiovascular History: Reports: High Cholesterol, Hypertension, Other (See Below) Other Cardiovascular History: states had some unusual rhythm and they started him on eloquis took 3 doses then GI bleed Gastrointestinal History: Reports: GI Bleed Genitourinary History: Reports: Other (See Below) Other Genitourinary History: history of urosepsis, prostate and penile cancer. Lymphedema, and lymphs removed from groin area Psychiatric History: Reports: None Endocrine/Metabolic History: Reports: Diabetes, Type II Oncologic (Cancer) History: Reports: Prostate, Other (See Below) Other Oncologic History: Groin lymphnode removal due to [place] penile cancer - Infectious Disease History Infectious Disease History: Reports: Measles - Past Surgical History HEENT Surgical History: Reports: Other (See Below) Other HEENT Surgeries/Procedures: ear surgery - hammer replaced with metal hammer Male Surgical History: Reports: Circumcision, Prostate Biopsy Other Oncologic Surgeries/Procedures: Bilateral Groin lymphnode removal due to CA Social & Family History - Family History Family Medical History: No Pertinent Family History - Tobacco Use Tobacco Use Status *Q: Current Every Day Tobacco User Years of Tobacco use: 60 Packs/Tins Daily: 0.5 - Caffeine Use Caffeine Use: Reports: Coffee ED ROS GENERAL - Review of Systems Review Of Systems: See Below Constitutional: Reports: Weakness HEENT: Reports: No Symptoms Respiratory: Reports: No Symptoms Cardiovascular: Reports: No Symptoms Endocrine: Reports: No Symptoms GI/Abdominal: Reports: No Symptoms : Reports: No Symptoms Musculoskeletal: Reports: No Symptoms Skin: Reports: No Symptoms Neurological: Reports: Difficulty Walking, Weakness Psychiatric: Reports: No Symptoms Hematologic/Lymphatic: Reports: No Symptoms Immunologic: Reports: No Symptoms ED EXAM, GENERAL - Physical Exam Exam: See Below Exam Limited By: No Limitations General Appearance: Alert, No Apparent Distress Eye Exam: Bilateral Eye: EOMI Ears: Other (Patient is very hard of hearing) Head: Atraumatic, Normocephalic Neck: Normal Inspection Respiratory/Chest: Crackles Cardiovascular: Regular Rate, Rhythm, Systolic Murmur Peripheral Pulses: 2+: Radial (L), Radial (R), Dorsalis Pedis (L), Dorsalis Pedis (R) GI/Abdominal: Normal Bowel Sounds, Soft, Non-Tender Rectal (Males) Exam: Normal Exam Back Exam: Normal Inspection Extremities: Pedal Edema, Other (Trace pedal edema bilateral) Neurological: Alert, Oriented, CN II-XII Intact, Normal Cognition Psychiatric: Normal Affect, Normal Mood Skin Exam: Warm, Dry Course - Vital Signs Text/Narrative:: From his [facility] chart dated 03/05/2021: "Labs from last week show minimally elevated ALT at 72 and AST 57. Normal total bilirubin. Alk phos also elevated at 511. No previous issues with LFTs. Unclear etiology. We will repeat labs in 2 weeks to trend." Labs performed today show an increase in ALT, AST, and alk phos at 148, 160, 728 respectively. Bilirubin remains within normal limits. Albumin is now low at 2.8, it was 3.6 on 03/07/2021. Labs also show a mild leukocytosis and although urinalysis is not significantly concerning for urinary tract infection he does have some leukocyte Estrace and a history of urinary tract infections. Review of his medical record shows significant history of Klebsiella pneumonia a resistant to Bactrim and nitrofurantoin. Patient also has presentation and labs concerning for mild dehydration. Testing for Covid and influenza are negative. Patient will be given 1 L normal saline and 1 g ceftriaxone. Patient will then be discharged to home with Augmentin, 875/125 mg twice daily for 5 days. Last Recorded V/S: Last Vital Signs Temp 37.3 C 03/10/21 23:51 Pulse 99 03/10/21 23:51 Resp 18 03/10/21 23:51 BP 133/74 03/10/21 23:51 Pulse Ox 99 03/10/21 23:51 - Orders/Labs/Meds Labs: Laboratory Tests 03/10/21 03/11/21 03/11/21 Range/Units 23:57 00:01 00:01 WBC 10.6 H (3.2-10.1) x10-3/uL RBC 3.66 L (3.90-5.90) x10(6)uL Hgb 10.4 L (12.9-17.7) g/dL Hct 32.1 L (38.3-50.1) % MCV 87.7 (80.8-98.7) fL MCH 28.5 (27.0-33.3) pg MCHC 32.5 (28.7-35.3) g/dL RDW 16.4 H (12.4-15.0) % Plt Count 295 (117-477) x10(3)uL MPV 7.7 (6.7-11.0) fL Neut % (Auto) 93.6 H (40.3-71.8) % Lymph % (Auto) 0.7 L (15.8-45.3) % [place] % (Auto) 4.9 L (5.5-15.2) % Eos % (Auto) 0.2 (0.1-6.8) % Baso % (Auto) 0.6 (0.3-3.8) % Neut # (Auto) 9.9 H (1.7-6.9) x10-3/uL Lymph # (Auto) 0.1 L (0.5-4.5) x10-3/uL [place] # (Auto) 0.5 (0.0-1.2) x10-3/uL Eos # (Auto) 0.0 (0.0-0.6) x10-3/uL Baso # (Auto) 0.1 (0.0-0.3) x10-3/uL Sodium 137 (135-145) mmol/L Potassium 3.9 (3.5-5.3) mmol/L Chloride 101 (100-110) mmol/L Carbon Dioxide 24 (21-32) mmol/L BUN 19 H (7-18) mg/dL Creatinine 1.3 (0.70-1.30) mg/dL Est Cr Clr Drug Dosing 51.40 mL/min Estimated GFR (MDRD) 53 L (>60) BUN/Creatinine Ratio 14.6 (9-20) Glucose 201 H (80-116) mg/dL Calcium 8.4 L (8.6-10.2) mg/dL Total Bilirubin 1.3 (0.1-1.3) mg/dL AST 148 H D (5-25) IU/L ALT 160 H* D (12-36) U/L Alkaline Phosphatase 728 H (56-112) IU/L Creatine Kinase (60-160) IU/L Total Protein 6.7 (6.0-8.0) g/dL Albumin 2.8 L (3.2-4.6) g/dL Globulin 3.9 g/dL Albumin/Globulin Ratio 0.7 Influenza Type A RNA Negative (NEGATIVE) Influenza Type B RNA Negative (NEGATIVE) SARS-CoV-2 RNA (ALAN) Negative (NEGATIVE) 03/11/21 Range/Units 00:01 WBC (3.2-10.1) x10-3/uL RBC (3.90-5.90) x10(6)uL Hgb (12.9-17.7) g/dL Hct (38.3-50.1) % MCV (80.8-98.7) fL MCH (27.0-33.3) pg MCHC (28.7-35.3) g/dL RDW (12.4-15.0) % Plt Count (117-477) x10(3)uL MPV (6.7-11.0) fL Neut % (Auto) (40.3-71.8) % Lymph % (Auto) (15.8-45.3) % [place] % (Auto) (5.5-15.2) % Eos % (Auto) (0.1-6.8) % Baso % (Auto) (0.3-3.8) % Neut # (Auto) (1.7-6.9) x10-3/uL Lymph # (Auto) (0.5-4.5) x10-3/uL [place] # (Auto) (0.0-1.2) x10-3/uL Eos # (Auto) (0.0-0.6) x10-3/uL Baso # (Auto) (0.0-0.3) x10-3/uL Sodium (135-145) mmol/L Potassium (3.5-5.3) mmol/L Chloride (100-110) mmol/L Carbon Dioxide (21-32) mmol/L BUN (7-18) mg/dL Creatinine (0.70-1.30) mg/dL Est Cr Clr Drug Dosing mL/min Estimated GFR (MDRD) (>60) BUN/Creatinine Ratio (9-20) Glucose (80-116) mg/dL Calcium (8.6-10.2) mg/dL Total Bilirubin (0.1-1.3) mg/dL AST (5-25) IU/L ALT (12-36) U/L Alkaline Phosphatase (56-112) IU/L Creatine Kinase 25 L (60-160) IU/L Total Protein (6.0-8.0) g/dL Albumin (3.2-4.6) g/dL Globulin g/dL Albumin/Globulin Ratio Influenza Type A RNA (NEGATIVE) Influenza Type B RNA (NEGATIVE) SARS-CoV-2 RNA (ALAN) (NEGATIVE) Departure - Departure Time of Disposition: Disposition: Home, Self-Care 01 Condition: Fair Clinical Impression: Urinary tract infection, Transaminitis, History of antineoplastic therapy, Weakness - Discharge Information *PRESCRIPTION DRUG MONITORING PROGRAM REVIEWED*: Not Applicable *COPY OF PRESCRIPTION DRUG MONITORING REPORT IN PATIENT MANUEL: Not Applicable Instructions: Weakness, [id number], Urinary Tract Infection, Adult, [id number], Deconditioning, Managing Cancer-Related Fatigue Additional Instructions: Take the Augmentin twice a day for only 5 days. Please return the unused portion of your prescription to a pharmacy for proper disposal. Please follow- up with your oncologist regarding your elevated liver enzymes. These follow-up with your primary care physician. You would greatly benefit from home health with physical and Occupational Therapy to avoid decompensation/deconditioning in the future. If you continue to have difficulties with fatigue/weakness and/or falls please follow-up with your primary care physician or return to the emergency department. If you continue to have symptoms with fever, chills, weakness and if you develop other symptoms such as chest pain, shortness of breath, dysuria, blood in your urine and/or feces, cough, shortness of breath please come to the emergency department immediately. Sepsis Event Note (ED) - Evaluation Sepsis Screening Result: No Definite Risk - Focused Exam Vital Signs: Vital Signs Temp Pulse Resp BP Pulse Ox 03/10/21 23:51 37.3 C 99 18 133/74 99
[2021-03-11] MEDS ORDERED: Sodium Chloride 0.9% 1,000 ML IV ONE (01:18)
[2021-03-11] MEDS ORDERED: cefTRIAXone 1 GM in Sodium Chloride 0.9% 50 ML IV ONE (01:19)
== END 2021-03-11 02:50 | disposition home or self-care (01) ==
LOC: FB.ED 23:37
DX: R74.01 Elevation of levels of liver transaminase levels (principal); N39.0 Urinary tract infection, site not specified; E78.00 Pure hypercholesterolemia, unspecified; I10 Essential (primary) hypertension; E11.9 Type 2 diabetes mellitus without complications; Z72.0 Tobacco use; Z79.84 Long term (current) use of oral hypoglycemic drugs; Z79.899 Other long term (current) drug therapy; Z20.822 Contact with and (suspected) exposure to COVID-19
CPT/HCPCS: 0240U; 36415; 80053; 81001; 82550; 85025; 96374; 99285; A9270; J0696; J7030

== ENCOUNTER 2021-08-30 11:16 | Inpatient (IN) | payer MEDICARE, OTHER ==
[2021-08-31] MEDS: NORMAL SALINE IV SCH (11:07)
[2021-08-31] MEDS: FLUCONAZOLE IV SCH (11:07)
[2021-08-31] MEDS: Sodium Chloride 0.9% 10 ML Syringe FLUSH PRN ×3 (13:16→19:04)
[2021-08-31] MEDS: Ampicillin/Sulbactam Na 3 GM in Sodium Chloride 0.9% 100 ML IV SCH ×2 (13:17→17:59)
[2021-08-31] MEDS: Acetaminophen 325 MG Tab PO SCH (17:45)
[2021-08-31] MEDS: metFORMIN 500 MG Tab PO SCH (17:45)
[2021-08-31] MEDS: Enoxaparin 40 MG/0.4 ML Syringe SUBCUT SCH (19:03)
[2021-08-31] MEDS: Aspirin 81 MG Tab.Chew PO SCH (20:22)
[2021-08-31] MEDS: Calcium Carbonate 500 MG Tablet PO SCH (20:22)
[2021-08-31] MEDS: Metoprolol Tartrate 25 MG Tab PO SCH (20:23)
[2021-08-31] MEDS: Tamsulosin 0.4 MG Cap.ER PO SCH (20:23)
[2021-09-01] MEDS: Sodium Chloride 0.9% 10 ML Syringe FLUSH PRN ×7 (00:27→19:30)
[2021-09-01] MEDS: Ampicillin/Sulbactam Na 3 GM in Sodium Chloride 0.9% 100 ML IV SCH ×4 (00:28→18:17)
[2021-09-01] MEDS: Acetaminophen 325 MG Tab PO SCH ×4 (00:42→18:17)
[2021-09-01] MEDS: Pantoprazole 40 MG Tab.CR PO SCH (06:43)
[2021-09-01] MEDS: metFORMIN 500 MG Tab PO SCH ×2 (08:24→18:17)
[2021-09-01] MEDS: Metoprolol Tartrate 25 MG Tab PO SCH ×2 (08:24→20:11)
[2021-09-01] MEDS: Calcium Carbonate 500 MG Tablet PO SCH ×2 (08:25→20:12)
[2021-09-01] MEDS: Multivitamins with Iron/Calcium/Folic Acid/Minerals Tab PO SCH (08:25)
[2021-09-01] MEDS: Cholecalciferol (Vitamin D3) 25 MCG Tab PO SCH (08:25)
[2021-09-01] MEDS: tiZANidine 4 MG Tab PO SCH (08:26)
[2021-09-01] MEDS: ERLEADA 60 MG PO SCH (08:33)
[2021-09-01] MEDS: Enoxaparin 40 MG/0.4 ML Syringe SUBCUT SCH (09:35)
[2021-09-01] MEDS: NORMAL SALINE IV SCH (10:47)
[2021-09-01] MEDS: FLUCONAZOLE IV SCH (10:47)
[2021-09-01] MEDS: Aspirin 81 MG Tab.Chew PO SCH (20:08)
[2021-09-01] MEDS: Tamsulosin 0.4 MG Cap.ER PO SCH (20:10)
[2021-09-02] MEDS: Acetaminophen 325 MG Tab PO SCH ×4 (00:10→18:05)
[2021-09-02] MEDS: Ampicillin/Sulbactam Na 3 GM in Sodium Chloride 0.9% 100 ML IV SCH ×4 (00:12→19:03)
[2021-09-02] MEDS: Sodium Chloride 0.9% 10 ML Syringe FLUSH PRN ×6 (00:15→20:04)
[2021-09-02] MEDS: Pantoprazole 40 MG Tab.CR PO SCH (07:26)
[2021-09-02] MEDS: metFORMIN 500 MG Tab PO SCH ×2 (08:05→18:05)
[2021-09-02] MEDS: Metoprolol Tartrate 25 MG Tab PO SCH ×2 (08:06→20:12)
[2021-09-02] MEDS: Multivitamins with Iron/Calcium/Folic Acid/Minerals Tab PO SCH (08:07)
[2021-09-02] MEDS: Cholecalciferol (Vitamin D3) 25 MCG Tab PO SCH (08:07)
[2021-09-02] MEDS: Calcium Carbonate 500 MG Tablet PO SCH ×2 (08:07→20:12)
[2021-09-02] MEDS: tiZANidine 4 MG Tab PO SCH (08:08)
[2021-09-02] MEDS: ERLEADA 60 MG PO SCH (08:09)
[2021-09-02] MEDS: Enoxaparin 40 MG/0.4 ML Syringe SUBCUT SCH (08:11)
[2021-09-02] MEDS: FLUCONAZOLE IV SCH (10:49)
[2021-09-02] MEDS: NORMAL SALINE IV SCH (10:49)
[2021-09-02] MEDS: Aspirin 81 MG Tab.Chew PO SCH (20:12)
[2021-09-02] MEDS: Tamsulosin 0.4 MG Cap.ER PO SCH (20:12)
[2021-09-03] MEDS: Ampicillin/Sulbactam Na 3 GM in Sodium Chloride 0.9% 100 ML IV SCH ×4 (00:36→18:22)
[2021-09-03] MEDS: Sodium Chloride 0.9% 10 ML Syringe FLUSH PRN ×3 (00:37→06:02)
[2021-09-03] MEDS: Acetaminophen 325 MG Tab PO SCH ×4 (00:47→18:22)
[2021-09-03 06:25] LABS: ESTIMATED GFR 87 mL/min (>60)
[2021-09-03] MEDS: Pantoprazole 40 MG Tab.CR PO SCH (06:31)
[2021-09-03] MEDS: metFORMIN 500 MG Tab PO SCH ×2 (07:57→17:33)
[2021-09-03] MEDS: ERLEADA 60 MG PO SCH (08:00)
[2021-09-03] MEDS: Metoprolol Tartrate 25 MG Tab PO SCH ×2 (08:01→20:50)
[2021-09-03] MEDS: Calcium Carbonate 500 MG Tablet PO SCH ×2 (08:04→20:51)
[2021-09-03] MEDS: tiZANidine 4 MG Tab PO SCH (08:05)
[2021-09-03] MEDS: Multivitamins with Iron/Calcium/Folic Acid/Minerals Tab PO SCH (08:05)
[2021-09-03] MEDS: Cholecalciferol (Vitamin D3) 25 MCG Tab PO SCH (08:06)
[2021-09-03] MEDS: Enoxaparin 40 MG/0.4 ML Syringe SUBCUT SCH (09:21)
[2021-09-03] MEDS: FLUCONAZOLE IV SCH (10:10)
[2021-09-03] MEDS: NORMAL SALINE IV SCH (10:10)
[2021-09-03] MEDS: Tamsulosin 0.4 MG Cap.ER PO SCH (20:50)
[2021-09-03] MEDS: Aspirin 81 MG Tab.Chew PO SCH (20:50)
[2021-09-04] MEDS: Sodium Chloride 0.9% 10 ML Syringe FLUSH PRN ×6 (00:55→18:31)
[2021-09-04] MEDS: Ampicillin/Sulbactam Na 3 GM in Sodium Chloride 0.9% 100 ML IV SCH ×4 (00:56→18:30)
[2021-09-04] MEDS: Acetaminophen 325 MG Tab PO SCH ×4 (00:58→18:31)
[2021-09-04] MEDS: Pantoprazole 40 MG Tab.CR PO SCH (06:35)
[2021-09-04] MEDS: Cholecalciferol (Vitamin D3) 25 MCG Tab PO SCH (09:05)
[2021-09-04] MEDS: tiZANidine 4 MG Tab PO SCH (09:05)
[2021-09-04] MEDS: Multivitamins with Iron/Calcium/Folic Acid/Minerals Tab PO SCH (09:06)
[2021-09-04] MEDS: Calcium Carbonate 500 MG Tablet PO SCH ×2 (09:06→20:07)
[2021-09-04] MEDS: Metoprolol Tartrate 25 MG Tab PO SCH ×2 (09:06→20:07)
[2021-09-04] MEDS: metFORMIN 500 MG Tab PO SCH ×2 (09:06→18:31)
[2021-09-04] MEDS: ERLEADA 60 MG PO SCH (09:07)
[2021-09-04] MEDS: Enoxaparin 40 MG/0.4 ML Syringe SUBCUT SCH (09:08)
[2021-09-04] MEDS: NORMAL SALINE IV SCH (11:00)
[2021-09-04] MEDS: FLUCONAZOLE IV SCH (11:00)
[2021-09-04] MEDS: Aspirin 81 MG Tab.Chew PO SCH (20:07)
[2021-09-04] MEDS: Tamsulosin 0.4 MG Cap.ER PO SCH (20:07)
[2021-09-05] MEDS: Ampicillin/Sulbactam Na 3 GM in Sodium Chloride 0.9% 100 ML IV SCH ×4 (00:42→18:27)
[2021-09-05] MEDS: Acetaminophen 325 MG Tab PO SCH ×4 (00:45→18:27)
[2021-09-05] MEDS: Sodium Chloride 0.9% 10 ML Syringe FLUSH PRN ×3 (01:45→18:28)
[2021-09-05] MEDS: Pantoprazole 40 MG Tab.CR PO SCH (06:56)
[2021-09-05] MEDS: Enoxaparin 40 MG/0.4 ML Syringe SUBCUT SCH (08:43)
[2021-09-05] MEDS: Metoprolol Tartrate 25 MG Tab PO SCH ×2 (08:45→20:21)
[2021-09-05] MEDS: Calcium Carbonate 500 MG Tablet PO SCH ×2 (08:45→20:21)
[2021-09-05] MEDS: metFORMIN 500 MG Tab PO SCH ×2 (08:45→18:27)
[2021-09-05] MEDS: Cholecalciferol (Vitamin D3) 25 MCG Tab PO SCH (08:45)
[2021-09-05] MEDS: Multivitamins with Iron/Calcium/Folic Acid/Minerals Tab PO SCH (08:45)
[2021-09-05] MEDS: ERLEADA 60 MG PO SCH (08:47)
[2021-09-05] MEDS: tiZANidine 4 MG Tab PO SCH (08:48)
[2021-09-05] MEDS: FLUCONAZOLE IV SCH (11:52)
[2021-09-05] MEDS: NORMAL SALINE IV SCH (11:52)
[2021-09-05] MEDS: Tamsulosin 0.4 MG Cap.ER PO SCH (20:21)
[2021-09-05] MEDS: Aspirin 81 MG Tab.Chew PO SCH (20:21)
[2021-09-06] MEDS: Acetaminophen 325 MG Tab PO SCH ×4 (00:17→18:26)
[2021-09-06] MEDS: Ampicillin/Sulbactam Na 3 GM in Sodium Chloride 0.9% 100 ML IV SCH ×4 (00:18→18:27)
[2021-09-06] MEDS: Pantoprazole 40 MG Tab.CR PO SCH (06:30)
[2021-09-06] MEDS: Multivitamins with Iron/Calcium/Folic Acid/Minerals Tab PO SCH (08:59)
[2021-09-06] MEDS: Metoprolol Tartrate 25 MG Tab PO SCH ×2 (09:00→20:35)
[2021-09-06] MEDS: tiZANidine 4 MG Tab PO SCH (09:00)
[2021-09-06] MEDS: Enoxaparin 40 MG/0.4 ML Syringe SUBCUT SCH (09:00)
[2021-09-06] MEDS: Cholecalciferol (Vitamin D3) 25 MCG Tab PO SCH (09:00)
[2021-09-06] MEDS: metFORMIN 500 MG Tab PO SCH ×2 (09:01→18:26)
[2021-09-06] MEDS: ERLEADA 60 MG PO SCH (09:03)
[2021-09-06] MEDS: Calcium Carbonate 500 MG Tablet PO SCH ×2 (09:04→20:27)
[2021-09-06] MEDS: NORMAL SALINE IV SCH (09:40)
[2021-09-06] MEDS: FLUCONAZOLE IV SCH (09:40)
[2021-09-06] MEDS: Tamsulosin 0.4 MG Cap.ER PO SCH (20:27)
[2021-09-06] MEDS: Aspirin 81 MG Tab.Chew PO SCH (20:27)
[2021-09-07] MEDS: Sodium Chloride 0.9% 10 ML Syringe FLUSH PRN ×6 (00:50→20:29)
[2021-09-07] MEDS: Ampicillin/Sulbactam Na 3 GM in Sodium Chloride 0.9% 100 ML IV SCH ×4 (00:51→18:41)
[2021-09-07] MEDS: Acetaminophen 325 MG Tab PO SCH ×4 (00:53→18:09)
[2021-09-07] MEDS: Pantoprazole 40 MG Tab.CR PO SCH (06:56)
[2021-09-07] MEDS: metFORMIN 500 MG Tab PO SCH ×2 (09:27→18:09)
[2021-09-07] MEDS: Metoprolol Tartrate 25 MG Tab PO SCH ×2 (09:28→20:20)
[2021-09-07] MEDS: tiZANidine 4 MG Tab PO SCH (09:28)
[2021-09-07] MEDS: Multivitamins with Iron/Calcium/Folic Acid/Minerals Tab PO SCH (09:28)
[2021-09-07] MEDS: ERLEADA 60 MG PO SCH (09:28)
[2021-09-07] MEDS: Cholecalciferol (Vitamin D3) 25 MCG Tab PO SCH (09:29)
[2021-09-07] MEDS: Calcium Carbonate 500 MG Tablet PO SCH ×2 (09:29→20:20)
[2021-09-07] MEDS: Enoxaparin 40 MG/0.4 ML Syringe SUBCUT SCH (09:30)
[2021-09-07] MEDS: NORMAL SALINE IV SCH (10:56)
[2021-09-07] MEDS: FLUCONAZOLE IV SCH (10:56)
[2021-09-07] MEDS: Aspirin 81 MG Tab.Chew PO SCH (20:19)
[2021-09-07] MEDS: Tamsulosin 0.4 MG Cap.ER PO SCH (20:21)
[2021-09-08] MEDS: Acetaminophen 325 MG Tab PO SCH ×4 (00:03→18:04)
[2021-09-08] MEDS: Ampicillin/Sulbactam Na 3 GM in Sodium Chloride 0.9% 100 ML IV SCH ×4 (00:04→18:50)
[2021-09-08] MEDS: Sodium Chloride 0.9% 10 ML Syringe FLUSH PRN ×6 (02:01→19:57)
[2021-09-08] MEDS: Pantoprazole 40 MG Tab.CR PO SCH (06:44)
[2021-09-08] MEDS: ERLEADA 60 MG PO SCH (08:12)
[2021-09-08] MEDS: metFORMIN 500 MG Tab PO SCH ×2 (08:13→18:03)
[2021-09-08] MEDS: Metoprolol Tartrate 25 MG Tab PO SCH ×2 (08:13→19:59)
[2021-09-08] MEDS: Enoxaparin 40 MG/0.4 ML Syringe SUBCUT SCH (08:14)
[2021-09-08] MEDS: Calcium Carbonate 500 MG Tablet PO SCH ×2 (08:14→20:00)
[2021-09-08] MEDS: Multivitamins with Iron/Calcium/Folic Acid/Minerals Tab PO SCH (08:14)
[2021-09-08] MEDS: Cholecalciferol (Vitamin D3) 25 MCG Tab PO SCH (08:15)
[2021-09-08] MEDS: tiZANidine 4 MG Tab PO SCH (08:17)
[2021-09-08] MEDS: NORMAL SALINE IV SCH (10:37)
[2021-09-08] MEDS: FLUCONAZOLE IV SCH (10:37)
[2021-09-08] MEDS: Tamsulosin 0.4 MG Cap.ER PO SCH (19:59)
[2021-09-08] MEDS: Aspirin 81 MG Tab.Chew PO SCH (20:00)
[2021-09-09] MEDS: Acetaminophen 325 MG Tab PO SCH ×4 (00:01→17:49)
[2021-09-09] MEDS: Ampicillin/Sulbactam Na 3 GM in Sodium Chloride 0.9% 100 ML IV SCH ×4 (00:04→19:47)
[2021-09-09] MEDS: Pantoprazole 40 MG Tab.CR PO SCH (05:04)
[2021-09-09] MEDS: Sodium Chloride 0.9% 10 ML Syringe FLUSH PRN ×5 (06:08→20:50)
[2021-09-09] MEDS: tiZANidine 4 MG Tab PO SCH (08:09)
[2021-09-09] MEDS: ERLEADA 60 MG PO SCH (08:09)
[2021-09-09] MEDS: Calcium Carbonate 500 MG Tablet PO SCH ×2 (08:09→21:23)
[2021-09-09] MEDS: Enoxaparin 40 MG/0.4 ML Syringe SUBCUT SCH (08:09)
[2021-09-09] MEDS: metFORMIN 500 MG Tab PO SCH ×2 (08:09→17:48)
[2021-09-09] MEDS: Cholecalciferol (Vitamin D3) 25 MCG Tab PO SCH (08:10)
[2021-09-09] MEDS: Metoprolol Tartrate 25 MG Tab PO SCH ×2 (08:10→21:23)
[2021-09-09] MEDS: Multivitamins with Iron/Calcium/Folic Acid/Minerals Tab PO SCH (08:10)
[2021-09-09] MEDS: FLUCONAZOLE IV SCH (11:00)
[2021-09-09] MEDS: NORMAL SALINE IV SCH (11:00)
[2021-09-09] MEDS: Polyethylene Glycol 3350 Powder 17 GM Packet PO PRN (13:24)
[2021-09-09] MEDS: Tamsulosin 0.4 MG Cap.ER PO SCH (21:23)
[2021-09-09] MEDS: Aspirin 81 MG Tab.Chew PO SCH (21:23)
[2021-09-10] MEDS: Ampicillin/Sulbactam Na 3 GM in Sodium Chloride 0.9% 100 ML IV SCH ×4 (00:12→17:59)
[2021-09-10] MEDS: Acetaminophen 325 MG Tab PO SCH ×4 (00:12→17:58)
[2021-09-10] MEDS: Sodium Chloride 0.9% 10 ML Syringe FLUSH PRN ×5 (00:13→17:59)
[2021-09-10] MEDS: Pantoprazole 40 MG Tab.CR PO SCH (06:14)
[2021-09-10 06:28] LABS: ESTIMATED GFR 77 mL/min (>60)
[2021-09-10] MEDS: metFORMIN 500 MG Tab PO SCH ×2 (08:02→17:58)
[2021-09-10] MEDS: ERLEADA 60 MG PO SCH (08:04)
[2021-09-10] MEDS: Calcium Carbonate 500 MG Tablet PO SCH ×2 (08:05→21:02)
[2021-09-10] MEDS: Multivitamins with Iron/Calcium/Folic Acid/Minerals Tab PO SCH (08:05)
[2021-09-10] MEDS: tiZANidine 4 MG Tab PO SCH (08:06)
[2021-09-10] MEDS: Cholecalciferol (Vitamin D3) 25 MCG Tab PO SCH (08:06)
[2021-09-10] MEDS: Metoprolol Tartrate 25 MG Tab PO SCH ×2 (08:54→21:01)
[2021-09-10] MEDS: Enoxaparin 40 MG/0.4 ML Syringe SUBCUT SCH (08:54)
[2021-09-10] MEDS: FLUCONAZOLE IV SCH (10:58)
[2021-09-10] MEDS: NORMAL SALINE IV SCH (10:58)
[2021-09-10] MEDS: Tamsulosin 0.4 MG Cap.ER PO SCH (21:01)
[2021-09-10] MEDS: Aspirin 81 MG Tab.Chew PO SCH (21:01)
[2021-09-11] MEDS: Acetaminophen 325 MG Tab PO SCH ×4 (00:05→18:14)
[2021-09-11] MEDS: Sodium Chloride 0.9% 10 ML Syringe FLUSH PRN ×6 (00:06→18:49)
[2021-09-11] MEDS: Ampicillin/Sulbactam Na 3 GM in Sodium Chloride 0.9% 100 ML IV SCH ×4 (00:06→18:50)
[2021-09-11] MEDS: Pantoprazole 40 MG Tab.CR PO SCH (05:56)
[2021-09-11] MEDS: ERLEADA 60 MG PO SCH (09:14)
[2021-09-11] MEDS: Calcium Carbonate 500 MG Tablet PO SCH ×2 (09:14→20:03)
[2021-09-11] MEDS: Enoxaparin 40 MG/0.4 ML Syringe SUBCUT SCH (09:14)
[2021-09-11] MEDS: Metoprolol Tartrate 25 MG Tab PO SCH ×2 (09:15→20:02)
[2021-09-11] MEDS: Cholecalciferol (Vitamin D3) 25 MCG Tab PO SCH (09:16)
[2021-09-11] MEDS: metFORMIN 500 MG Tab PO SCH ×2 (09:16→18:13)
[2021-09-11] MEDS: tiZANidine 4 MG Tab PO SCH (09:16)
[2021-09-11] MEDS: Multivitamins with Iron/Calcium/Folic Acid/Minerals Tab PO SCH (09:16)
[2021-09-11] MEDS: NORMAL SALINE IV SCH (11:00)
[2021-09-11] MEDS: FLUCONAZOLE IV SCH (11:00)
[2021-09-11] MEDS: Aspirin 81 MG Tab.Chew PO SCH (20:03)
[2021-09-11] MEDS: Tamsulosin 0.4 MG Cap.ER PO SCH (20:03)
[2021-09-12] MEDS: Acetaminophen 325 MG Tab PO SCH ×4 (00:02→18:19)
[2021-09-12] MEDS: Ampicillin/Sulbactam Na 3 GM in Sodium Chloride 0.9% 100 ML IV SCH ×4 (00:02→18:21)
[2021-09-12] MEDS: Pantoprazole 40 MG Tab.CR PO SCH (05:38)
[2021-09-12] MEDS: tiZANidine 4 MG Tab PO SCH (08:32)
[2021-09-12] MEDS: Multivitamins with Iron/Calcium/Folic Acid/Minerals Tab PO SCH (08:32)
[2021-09-12] MEDS: ERLEADA 60 MG PO SCH (08:32)
[2021-09-12] MEDS: metFORMIN 500 MG Tab PO SCH ×2 (08:32→18:18)
[2021-09-12] MEDS: Enoxaparin 40 MG/0.4 ML Syringe SUBCUT SCH (08:32)
[2021-09-12] MEDS: Cholecalciferol (Vitamin D3) 25 MCG Tab PO SCH (08:33)
[2021-09-12] MEDS: Calcium Carbonate 500 MG Tablet PO SCH ×2 (08:33→21:09)
[2021-09-12] MEDS: Metoprolol Tartrate 25 MG Tab PO SCH ×2 (08:36→21:16)
[2021-09-12] MEDS: Sodium Chloride 0.9% 10 ML Syringe FLUSH PRN ×3 (10:59→18:22)
[2021-09-12] MEDS: FLUCONAZOLE IV SCH ×2 (10:59)
[2021-09-12] MEDS: NORMAL SALINE IV SCH ×2 (10:59)
[2021-09-12] MEDS: Aspirin 81 MG Tab.Chew PO SCH (21:05)
[2021-09-12] MEDS: Tamsulosin 0.4 MG Cap.ER PO SCH (21:06)
[2021-09-13] MEDS: Acetaminophen 325 MG Tab PO SCH ×3 (00:20→11:53)
[2021-09-13] MEDS: Ampicillin/Sulbactam Na 3 GM in Sodium Chloride 0.9% 100 ML IV SCH ×4 (00:23→18:48)
[2021-09-13] MEDS: Pantoprazole 40 MG Tab.CR PO SCH (05:58)
[2021-09-13] MEDS: metFORMIN 500 MG Tab PO SCH ×2 (07:03→17:25)
[2021-09-13] MEDS: Metoprolol Tartrate 25 MG Tab PO SCH ×2 (08:00→20:19)
[2021-09-13] MEDS: Cholecalciferol (Vitamin D3) 25 MCG Tab PO SCH (08:01)
[2021-09-13] MEDS: Calcium Carbonate 500 MG Tablet PO SCH ×2 (08:01→20:23)
[2021-09-13] MEDS: Multivitamins with Iron/Calcium/Folic Acid/Minerals Tab PO SCH (08:01)
[2021-09-13] MEDS: tiZANidine 4 MG Tab PO SCH (08:02)
[2021-09-13] MEDS: ERLEADA 60 MG PO SCH (08:03)
[2021-09-13] MEDS: Enoxaparin 40 MG/0.4 ML Syringe SUBCUT SCH (08:04)
[2021-09-13] MEDS: Sodium Chloride 0.9% 10 ML Syringe FLUSH PRN ×4 (10:18→18:47)
[2021-09-13] MEDS: NORMAL SALINE IV SCH (10:19)
[2021-09-13] MEDS: FLUCONAZOLE IV SCH (10:19)
[2021-09-13] MEDS: Aspirin 81 MG Tab.Chew PO SCH (20:25)
[2021-09-13] MEDS: Tamsulosin 0.4 MG Cap.ER PO SCH (20:25)
[2021-09-14] MEDS: Ampicillin/Sulbactam Na 3 GM in Sodium Chloride 0.9% 100 ML IV SCH ×5 (06:00→18:03)
[2021-09-14] MEDS: Pantoprazole 40 MG Tab.CR PO SCH (06:16)
[2021-09-14] MEDS: metFORMIN 500 MG Tab PO SCH ×2 (07:03→18:04)
[2021-09-14] MEDS: Calcium Carbonate 500 MG Tablet PO SCH ×2 (09:12→21:14)
[2021-09-14] MEDS: Cholecalciferol (Vitamin D3) 25 MCG Tab PO SCH (09:12)
[2021-09-14] MEDS: Metoprolol Tartrate 25 MG Tab PO SCH ×2 (09:12→21:14)
[2021-09-14] MEDS: ERLEADA 60 MG PO SCH (09:13)
[2021-09-14] MEDS: Enoxaparin 40 MG/0.4 ML Syringe SUBCUT SCH (09:13)
[2021-09-14] MEDS: Multivitamins with Iron/Calcium/Folic Acid/Minerals Tab PO SCH (09:14)
[2021-09-14] MEDS: NORMAL SALINE IV SCH (09:15)
[2021-09-14] MEDS: tiZANidine 4 MG Tab PO SCH (09:15)
[2021-09-14] MEDS: FLUCONAZOLE IV SCH (09:15)
[2021-09-14] MEDS: Sodium Chloride 0.9% 10 ML Syringe FLUSH PRN (18:04)
[2021-09-14] MEDS: Tamsulosin 0.4 MG Cap.ER PO SCH (21:14)
[2021-09-14] MEDS: Aspirin 81 MG Tab.Chew PO SCH (21:14)
[2021-09-15] MEDS: Sodium Chloride 0.9% 10 ML Syringe FLUSH PRN ×2 (00:20→06:25)
[2021-09-15] MEDS: Ampicillin/Sulbactam Na 3 GM in Sodium Chloride 0.9% 100 ML IV SCH ×4 (00:21→18:22)
[2021-09-15] MEDS: Pantoprazole 40 MG Tab.CR PO SCH (06:25)
[2021-09-15] MEDS: ERLEADA 60 MG PO SCH (08:25)
[2021-09-15] MEDS: metFORMIN 500 MG Tab PO SCH ×2 (08:25→18:22)
[2021-09-15] MEDS: Metoprolol Tartrate 25 MG Tab PO SCH ×2 (08:27→21:02)
[2021-09-15] MEDS: Enoxaparin 40 MG/0.4 ML Syringe SUBCUT SCH (08:28)
[2021-09-15] MEDS: Calcium Carbonate 500 MG Tablet PO SCH ×2 (08:28→21:02)
[2021-09-15] MEDS: Multivitamins with Iron/Calcium/Folic Acid/Minerals Tab PO SCH (08:28)
[2021-09-15] MEDS: Cholecalciferol (Vitamin D3) 25 MCG Tab PO SCH (08:29)
[2021-09-15] MEDS: tiZANidine 4 MG Tab PO SCH (08:29)
[2021-09-15] MEDS: NORMAL SALINE IV SCH (08:33)
[2021-09-15] MEDS: FLUCONAZOLE IV SCH (08:33)
[2021-09-15] MEDS: Aspirin 81 MG Tab.Chew PO SCH (21:02)
[2021-09-15] MEDS: Tamsulosin 0.4 MG Cap.ER PO SCH (21:02)
[2021-09-16] MEDS: Ampicillin/Sulbactam Na 3 GM in Sodium Chloride 0.9% 100 ML IV SCH ×4 (00:03→18:02)
[2021-09-16] MEDS: Sodium Chloride 0.9% 10 ML Syringe FLUSH PRN (00:15)
[2021-09-16] MEDS: Pantoprazole 40 MG Tab.CR PO SCH (07:00)
[2021-09-16] MEDS: ERLEADA 60 MG PO SCH (08:01)
[2021-09-16] MEDS: metFORMIN 500 MG Tab PO SCH ×2 (08:01→18:01)
[2021-09-16] MEDS: Metoprolol Tartrate 25 MG Tab PO SCH ×2 (08:02→20:40)
[2021-09-16] MEDS: Enoxaparin 40 MG/0.4 ML Syringe SUBCUT SCH (08:03)
[2021-09-16] MEDS: Multivitamins with Iron/Calcium/Folic Acid/Minerals Tab PO SCH (08:03)
[2021-09-16] MEDS: Calcium Carbonate 500 MG Tablet PO SCH ×2 (08:03→20:40)
[2021-09-16] MEDS: tiZANidine 4 MG Tab PO SCH (08:04)
[2021-09-16] MEDS: Cholecalciferol (Vitamin D3) 25 MCG Tab PO SCH (08:04)
[2021-09-16] MEDS: FLUCONAZOLE IV SCH (09:15)
[2021-09-16] MEDS: NORMAL SALINE IV SCH (09:15)
[2021-09-16] MEDS: Tamsulosin 0.4 MG Cap.ER PO SCH (20:40)
[2021-09-16] MEDS: Aspirin 81 MG Tab.Chew PO SCH (20:40)
[2021-09-17] MEDS: Ampicillin/Sulbactam Na 3 GM in Sodium Chloride 0.9% 100 ML IV SCH ×4 (00:13→18:02)
[2021-09-17] MEDS: Sodium Chloride 0.9% 10 ML Syringe FLUSH PRN ×5 (01:21→13:55)
[2021-09-17] MEDS: Pantoprazole 40 MG Tab.CR PO SCH (06:30)
[2021-09-17 07:15] LABS: ESTIMATED GFR 77 mL/min (>60)
[2021-09-17] MEDS: ERLEADA 60 MG PO SCH (09:26)
[2021-09-17] MEDS: metFORMIN 500 MG Tab PO SCH ×2 (09:26→17:08)
[2021-09-17] MEDS: Metoprolol Tartrate 25 MG Tab PO SCH ×2 (09:27→20:04)
[2021-09-17] MEDS: Multivitamins with Iron/Calcium/Folic Acid/Minerals Tab PO SCH (09:28)
[2021-09-17] MEDS: Calcium Carbonate 500 MG Tablet PO SCH ×2 (09:28→20:05)
[2021-09-17] MEDS: Cholecalciferol (Vitamin D3) 25 MCG Tab PO SCH (09:30)
[2021-09-17] MEDS: tiZANidine 4 MG Tab PO SCH (09:30)
[2021-09-17] MEDS ORDERED: Alteplase 2 MG Vial IVPUSH ONE (09:42)
[2021-09-17] MEDS: Enoxaparin 40 MG/0.4 ML Syringe SUBCUT SCH (09:50)
[2021-09-17] MEDS: Polyethylene Glycol 3350 Powder 17 GM Packet PO PRN (09:51)
[2021-09-17] MEDS: NORMAL SALINE IV SCH (09:51)
[2021-09-17] MEDS: FLUCONAZOLE IV SCH (09:51)
[2021-09-17] MEDS: Aspirin 81 MG Tab.Chew PO SCH (20:04)
[2021-09-17] MEDS: Tamsulosin 0.4 MG Cap.ER PO SCH (20:05)
[2021-09-17] MEDS ORDERED: Ondansetron 4 MG Tab.DIS PO PRN (20:30)
[2021-09-17] MEDS: Acetaminophen 325 MG Tab PO PRN (21:14)
[2021-09-18] MEDS: Sodium Chloride 0.9% 10 ML Syringe FLUSH PRN ×5 (00:45→10:58)
[2021-09-18] MEDS: Ampicillin/Sulbactam Na 3 GM in Sodium Chloride 0.9% 100 ML IV SCH ×4 (00:45→18:41)
[2021-09-18] MEDS: Pantoprazole 40 MG Tab.CR PO SCH (05:36)
[2021-09-18] MEDS: ERLEADA 60 MG PO SCH (08:45)
[2021-09-18] MEDS: Enoxaparin 40 MG/0.4 ML Syringe SUBCUT SCH (08:45)
[2021-09-18] MEDS: Metoprolol Tartrate 25 MG Tab PO SCH ×2 (08:45→20:16)
[2021-09-18] MEDS: Calcium Carbonate 500 MG Tablet PO SCH ×2 (08:46→20:16)
[2021-09-18] MEDS: tiZANidine 4 MG Tab PO SCH (08:46)
[2021-09-18] MEDS: Cholecalciferol (Vitamin D3) 25 MCG Tab PO SCH (08:46)
[2021-09-18] MEDS: metFORMIN 500 MG Tab PO SCH ×2 (08:46→17:45)
[2021-09-18] MEDS: Multivitamins with Iron/Calcium/Folic Acid/Minerals Tab PO SCH (08:46)
[2021-09-18] MEDS: NORMAL SALINE IV SCH (08:53)
[2021-09-18] MEDS: FLUCONAZOLE IV SCH (08:53)
[2021-09-18] MEDS ORDERED: Magnesium Hydroxide 400 MG/5 ML Susp 30 ML Cup PO PRN (13:18)
[2021-09-18] MEDS: Tamsulosin 0.4 MG Cap.ER PO SCH (20:16)
[2021-09-18] MEDS: Aspirin 81 MG Tab.Chew PO SCH (20:16)
[2021-09-19] MEDS: Ampicillin/Sulbactam Na 3 GM in Sodium Chloride 0.9% 100 ML IV SCH ×4 (00:02→18:16)
[2021-09-19] MEDS: Sodium Chloride 0.9% 10 ML Syringe FLUSH PRN ×4 (01:08→18:16)
[2021-09-19] MEDS: Pantoprazole 40 MG Tab.CR PO SCH (06:53)
[2021-09-19] MEDS: metFORMIN 500 MG Tab PO SCH ×2 (08:19→18:16)
[2021-09-19] MEDS: ERLEADA 60 MG PO SCH (08:19)
[2021-09-19] MEDS: Metoprolol Tartrate 25 MG Tab PO SCH ×2 (08:21→21:17)
[2021-09-19] MEDS: Calcium Carbonate 500 MG Tablet PO SCH ×2 (08:22→21:17)
[2021-09-19] MEDS: Enoxaparin 40 MG/0.4 ML Syringe SUBCUT SCH (08:22)
[2021-09-19] MEDS: Multivitamins with Iron/Calcium/Folic Acid/Minerals Tab PO SCH (08:22)
[2021-09-19] MEDS: Cholecalciferol (Vitamin D3) 25 MCG Tab PO SCH (08:22)
[2021-09-19] MEDS: tiZANidine 4 MG Tab PO SCH (08:25)
[2021-09-19] MEDS: NORMAL SALINE IV SCH (10:06)
[2021-09-19] MEDS: FLUCONAZOLE IV SCH (10:06)
[2021-09-19] MEDS: Tamsulosin 0.4 MG Cap.ER PO SCH (21:17)
[2021-09-19] MEDS: Aspirin 81 MG Tab.Chew PO SCH (21:17)
[2021-09-20] MEDS: Ampicillin/Sulbactam Na 3 GM in Sodium Chloride 0.9% 100 ML IV SCH ×4 (00:05→18:15)
[2021-09-20] MEDS: Sodium Chloride 0.9% 10 ML Syringe FLUSH PRN ×4 (01:15→18:14)
[2021-09-20] MEDS: Pantoprazole 40 MG Tab.CR PO SCH (06:22)
[2021-09-20] MEDS: ERLEADA 60 MG PO SCH (08:53)
[2021-09-20] MEDS: metFORMIN 500 MG Tab PO SCH ×2 (08:53→18:13)
[2021-09-20] MEDS: Metoprolol Tartrate 25 MG Tab PO SCH ×2 (08:55→21:54)
[2021-09-20] MEDS: Multivitamins with Iron/Calcium/Folic Acid/Minerals Tab PO SCH (08:56)
[2021-09-20] MEDS: Enoxaparin 40 MG/0.4 ML Syringe SUBCUT SCH (08:56)
[2021-09-20] MEDS: Calcium Carbonate 500 MG Tablet PO SCH ×2 (08:56→22:02)
[2021-09-20] MEDS: Cholecalciferol (Vitamin D3) 25 MCG Tab PO SCH (08:57)
[2021-09-20] MEDS: tiZANidine 4 MG Tab PO SCH (08:57)
[2021-09-20] MEDS: FLUCONAZOLE IV SCH (09:46)
[2021-09-20] MEDS: NORMAL SALINE IV SCH (09:46)
[2021-09-20] MEDS: Aspirin 81 MG Tab.Chew PO SCH (21:53)
[2021-09-20] MEDS: Tamsulosin 0.4 MG Cap.ER PO SCH (21:53)
[2021-09-21] MEDS: Ampicillin/Sulbactam Na 3 GM in Sodium Chloride 0.9% 100 ML IV SCH ×2 (00:39→07:00)
[2021-09-21] MEDS: Sodium Chloride 0.9% 10 ML Syringe FLUSH PRN ×3 (00:40→09:05)
[2021-09-21] MEDS: Acetaminophen 325 MG Tab PO PRN (07:04)
[2021-09-21] MEDS: Pantoprazole 40 MG Tab.CR PO SCH (07:04)
[2021-09-21] MEDS ORDERED: Sodium Chloride 0.9% 500 ML IV ONE (08:10)
[2021-09-21] MEDS: Calcium Carbonate 500 MG Tablet PO SCH (08:54)
[2021-09-21] MEDS: metFORMIN 500 MG Tab PO SCH (08:55)
[2021-09-21] MEDS: Cholecalciferol (Vitamin D3) 25 MCG Tab PO SCH (08:56)
[2021-09-21] MEDS: Multivitamins with Iron/Calcium/Folic Acid/Minerals Tab PO SCH (08:57)
[2021-09-21] MEDS: ERLEADA 60 MG PO SCH (08:59)
[2021-09-21] MEDS: Enoxaparin 40 MG/0.4 ML Syringe SUBCUT SCH (08:59)
[2021-09-21] MEDS: tiZANidine 4 MG Tab PO SCH (09:00)
[2021-09-21] MEDS: Metoprolol Tartrate 25 MG Tab PO SCH (10:16)
[2021-09-21] MEDS: FLUCONAZOLE IV SCH (10:17)
[2021-09-21] MEDS: NORMAL SALINE IV SCH (10:17)
[2021-09-21] MEDS ORDERED: Acetaminophen 325 MG Tab PO PRN (11:34)
[2021-09-21] MEDS ORDERED: Ibuprofen 400 MG Tab PO PRN (11:34)
[2021-09-21 12:55] LABS: ESTIMATED GFR 47 mL/min (>60)
[2021-09-21] MEDS ORDERED: Acetaminophen Soln 650 MG/20.3 ML UD Cup PO ONE (13:10)
[2021-09-21] MEDS ORDERED: Lactated Ringers 1,000 ML IV ONE (13:49)
[2021-09-21] MEDS ORDERED: Succinylcholine 200 MG/10 ML MDV IV ONE (14:49)
[2021-09-21] MEDS ORDERED: EPINEPHrine 1:10,000 1 MG/10 ML Syringe IV ONE (16:23)
== END 2021-09-21 14:00 | DRG 441 ==
LOC: FB.MS 08-31 10:25
PROVIDERS: ADMIT Family Medicine; ATTEND Family Medicine
PROC: 0BH17EZ Insertion of Endotracheal Airway into Trachea, Via Natural or Artificial Opening (ICD-10-PCS; principal; 2021-08-31)
PROC: 5A1935Z Respiratory Ventilation, Less than 24 Consecutive Hours (ICD-10-PCS; 2021-08-31)
DX: K75.0 Abscess of liver (principal); A41.9 Sepsis, unspecified organism; J96.01 Acute respiratory failure with hypoxia; R65.21 Severe sepsis with septic shock; I46.9 Cardiac arrest, cause unspecified; N13.8 Other obstructive and reflux uropathy; I48.91 Unspecified atrial fibrillation; N40.1 Benign prostatic hyperplasia with lower urinary tract symptoms; H91.90 Unspecified hearing loss, unspecified ear; E78.5 Hyperlipidemia, unspecified; I10 Essential (primary) hypertension; M85.80 Other specified disorders of bone density and structure, unspecified site; F17.210 Nicotine dependence, cigarettes, uncomplicated; Z96.642 Presence of left artificial hip joint; E11.9 Type 2 diabetes mellitus without complications; H54.7 Unspecified visual loss; Z96.659 Presence of unspecified artificial knee joint; E66.9 Obesity, unspecified; R79.89 Other specified abnormal findings of blood chemistry; Z97.4 Presence of external hearing-aid; Z79.82 Long term (current) use of aspirin; Z79.84 Long term (current) use of oral hypoglycemic drugs; Z79.899 Other long term (current) drug therapy; Z87.440 Personal history of urinary (tract) infections; Z90.49 Acquired absence of other specified parts of digestive tract; Z98.890 Other specified postprocedural states; Z85.46 Personal history of malignant neoplasm of prostate; K59.00 Constipation, unspecified; Z68.22 Body mass index [BMI] 22.0-22.9, adult
CPT/HCPCS: 31500; 36415; 71045; 80053; 82947; 83605; 85014; 85018; 85025; 85049; 85651; 86140; 87040; 87077; 87186; 93005; 93010; 97110-GO; 97116-GP; 97161-GP; 97166-GO; 97530-GO; 97530-GP; 97535-GO; 99291; 99305; 99307; 99308; 99309; 99315; A9270-GY; J0171; J0295; J0330; J1450; J1650; J2997; J3490; J7040; J7120; Q0162